=== PATIENT | male | born 2000 | race Caucasian/White ===

== ENCOUNTER 2024-02-16 08:24 | Outpatient (CLI) | payer BC, SELFPAY ==
[2024-02-24 18:12] VITALS: BMI 29.2
--- NOTE | 2024-02-24 18:12 | WPDSLEEPSTUD ---
Sleep Study Date of Study: 02/16/24 Ordering Provider: Delmis Murray, WAREHOUSE EXAMINER Interpreting Physician: Nanette Alcaraz DO Sleep Study Type: CPAP Titration Height: 1.78 m Weight: 92.533 kg Body Mass Index: 29.2 Neck Circumference (inches): 18 [place]: 0 Reason for Sleep Study Loud snoring The patient had a [facility] home sleep test on 10/22/2023 that showed an AHI of 3 using 4% criteria and an AHI of 12.7 using 3% criteria. Sleep History The patient is a 23-year-old male with ADHD, asthma, chronic nasal congestion and anxiety that had a sleep study ordered by his primary care for evaluation of sleep apnea. The patient denies awakening from sleep short of breath. He denies awakening at night with heartburn, belching or cough. He constantly snores loudly enough that others complain. He occasionally has trouble sleeping when he has a cold. He denies waking up gasping for air throughout the night. He frequently has breathing problems at night observed by himself or others. He denies sweating excessively at night. He denies having heart palpitations or irregular heartbeats during the night. He denies falling asleep during the day and while driving. He denies sleep paralysis. He occasionally experiences loss of muscle tone when extremely emotional. He occasionally has trouble at school or work due to sleepiness. He constantly experiences vivid dreamlike scenes upon awakening or falling asleep. He occasionally feels afraid of going to sleep. He rarely has nightmares. He frequently remembers his dreams. He constantly has thoughts racing through his mind. He occasionally feels sad or depressed. He frequently has anxiety. He frequently has muscular tension. He frequently notices parts of his body jerk. He denies having crawling and aching feelings in his legs and denies having leg pain during the night. He denies grinding his teeth during sleep and denies awakening with morning jaw pain. He is rarely bothered by pain during the day but never awakened by pain during the night. He frequently wakes up feeling stiff in the morning. He frequently wakes up with sore or achy muscles. He denies waking up with pain in the neck, spine or other joints. The patient goes to bed between 9:30-10 p.m. on weekdays and between 12:00 a.m. to 1:00 a.m. on the weekends. It takes him 30-60 minutes to fall asleep. If he is unable to fall asleep during that time he is the entire night. According to an sharon on his phone, he is up over 20 times throughout the night. When he awakens, he will adjust position or take a Benadryl if he is up for longer than 1 hour. Most of the time he is able to fall back asleep within a few minutes. He wakes up at 8:00 a.m. on both weekdays and weekends. He typically gets 8 hours of sleep per night. He will stay in bed for 30 minutes after waking up in the morning. He currently lives with his parents and but will be moving in with a roommate shortly. He denies consuming any caffeinated beverages within 2 hours of bedtime. He will engage in physical exercise before bedtime. He will read and watch television before falling asleep. He denies taking naps in the afternoon or the evening. He denies consuming caffeinated beverages throughout the day. He denies tobacco, alcohol and recreational drug use. [facility] Past Medical History Medical History (Updated 02/24/24 @ 18:23 by Nanette Alcaraz DO) ADHD Anxiety Chronic nasal congestion ARIANA (obstructive sleep apnea) Sleep Procedure A full night polysomnogram using the [employer] multi-channel system recorded the standard physiologic parameters including EEG, EOG, submentalis EMG, anterior tibialis EMG, EKG, body position, nasal and oral airflow using PAP device flow signal.? Respiratory parameters of chest and abdominal movements were recorded with Respiratory Inductance Plethysmography belts. Oxygen saturation was recorded by pulse oximetry. Video monitoring was also performed. Sleep stages, periodic limb movements, and EEG arousals were scored in 30 second epochs according to the criteria of the AASM Scoring Manual. The Apnea-Hypopnea Index was calculated using CMS guidelines for definition of hypopnea with 4% O2 desaturations while scoring respiratory events. Sleep Architecture The total recording time was 458.5 minutes.? The total sleep time was 404.5 minutes. Sleep latency was 29.3 minutes. REM latency was 253.5 minutes. Sleep efficiency was 88.2%. The patient had 18 awakenings for an awakening index of 2.7. Wake after Sleep Onset time was 24.5 minutes. The patient spent 21.5 minutes, 5.4% of total sleep time in Stage N1. The patient spent 237.5 minutes, 59.4% in Stage N2. The patient spent 99.5 minutes, 24.9% in Stage N3. The patient spent 41.0 minutes, 10.3% in Stage REM. Respiratory Analysis The patient had 8 hypopneas, 6 obstructive apneas and 1 mixed apnea for an overall Apnea Hypopnea Index of 2.3 events per hour. The REM Apnea Hypopnea Index was 1.5. The NREM Apnea Hypopnea Index was 2.3. The patient had a Central Apnea Hypopnea Index of 0. There was no evidence of [place]ai[place] Respirations. The patient was started on CPAP 5 cm H2O and titrated to CPAP 13 cm H2O due to obstructive apneas and hypopneas. The patient was able to fall asleep starting on CPAP 5 cm H2O. The patient was able to achieve REM sleep starting on CPAP 11 cm H2O. The patient was able to achieve a residual AHI less than 5 with both NREM and REM sleep in the supine position on the final two pressures. On CPAP 11 cm H2O, the patient 37.5 minutes in NREM and 25.5 minutes in REM with 2 hypopneas, resulting in an AHI of 1.9. On CPAP 13 cm H2O, the patient 130 minutes in NREM and 15.5 minutes in REM with 1 hypopnea, resulting in an AHI of 0.4. The patient had a sleep efficiency of 97.7% on 11 cm H2O and 96.7% on 13 cm H2O. Arousals There were 54 total arousals for an arousal index of 8.1. There were 51 spontaneous arousals for an index of 7.7. ?There were 3 arousals due to respiratory events for an index of 0.5. There were no arousals due to isolated or periodic limb movements. Periodic Limb Movements The patient had 1 isolated limb movement with an index of 0.2. The patient had 22 periodic limb movements with index of 3.3. Patient had a total of 23 limb movements with a total limb movement index of 3.5. Oximetry Data The patient had an average oxygen saturation of 94.7% in sleep with a minimum oxygen saturation of 88.0% and a maximum oxygen saturation of 98.0%. The patient had 13 oxygen desaturations that were 4% or greater resulting in an Oxygen Desaturation Index of 2.0.? The patient spent 0.3 minutes, 0.1% of total sleep time with an oxygen saturation below 88%. Snoring Profile Snoring was not present during this study. Cardiac Profile The EKG showed normal sinus rhythm. No arrhythmias or PVCs were seen. The patient had an average pulse rate of 56.0 bpm with a minimum pulse rate of 48.0 bpm and a maximum pulse rate of 90.0 bpm. ? EEG Profile No signs of seizure activity seen. Assessment and Plan Assessment and Plan (1) ARIANA (obstructive sleep apnea): Code(s): G47.33 - Obstructive sleep apnea (adult) (pediatric) Status: Acute Assessment and Plan: The patient was started on CPAP 5 cm H2O and titrated to CPAP 13 cm H2O. His sleep apnea resolved on the final pressure. I recommend that the patient be prescribed CPAP 13 cm H2O, size medium Resmed AirFit F20 full face mask, CPAP filters/tubing and heated humidity. This should be used with all episodes of sleep.? Compliance should be reviewed within 31-90 days of starting therapy for usage greater than 4 hours per night greater than 70% of the nights. The patient should be asked about symptoms such as?excessive daytime sleepiness, quality of sleep, decreased nocturia, increased?mental functioning such as memory, mood, and concentration. Data The data obtained during this sleep study is adequate for interpretation. Certification This sleep study has been reviewed by a board certified sleep medicine physician.
== END 2024-02-17 06:25 | disposition home or self-care (01) ==
PROVIDERS: PCP Registered Nurse; Visit Provider Registered Nurse
DX: G47.31 Primary central sleep apnea (principal); G47.33 Obstructive sleep apnea (adult) (pediatric)
CPT/HCPCS: 95811